=== PATIENT | female | born 1980 | race African-American/Black ===

== ENCOUNTER 2017-06-05 15:15 | Emergency (ER) | payer OTHER ==
[~2017-06-05] VITALS: Ht 167.6 cm; Wt 72.0 kg
[~2017-06-05 15:15] MED LIST: CLEOCIN300 MG PO; FLEXERIL10 MG PO; NAPROSYN500 MG PO; PREDNISONE50 MG PO; VENTOLIN HFA18 GM IH
[2017-06-05 17:24] VITALS: BP 135/106
== END 2017-06-05 17:27 | disposition home or self-care (01) ==
LOC: EME 15:15
DX: R51 Headache (principal); R03.0 Elevated blood-pressure reading, without diagnosis of hypertension; F17.200 Nicotine dependence, unspecified, uncomplicated
CPT/HCPCS: 70450; 99281; 99284; J1885

== ENCOUNTER 2017-08-09 05:50 | Day surgery (SDC) | payer OTHER ==
[~2017-08-09] VITALS: Ht 167.6 cm; Wt 72.5 kg
[2017-08-09 06:45] VITALS: BP 116/75
[2017-08-09] MEDS ORDERED: IBUPROFEN800 MG PO (08:34)
[2017-08-09 09:35] VITALS: BP 132/83
[2017-08-09 10:02] VITALS: BP 125/73
== END 2017-08-09 10:10 | disposition home or self-care (01) ==
LOC: SDC 05:50
PROC: 0UB Female Reproductive System, Excision (ICD-10-PCS; principal; 2017-08-09)
DX: K66.8 Other specified disorders of peritoneum (principal); L72.0 Epidermal cyst; J45.909 Unspecified asthma, uncomplicated; F17.200 Nicotine dependence, unspecified, uncomplicated
CPT/HCPCS: 88304; J0690; J1100; J1885; J2250; J2405; J3010

== ENCOUNTER 2017-12-15 07:42 | Emergency (ER) | payer OTHER ==
[~2017-12-15] VITALS: Ht 167.6 cm; Wt 72.8 kg
[~2017-12-15 07:42] MED LIST changes: +IBUPROFEN800 MG PO
[2017-12-15 08:40] LABS: SOURCE SWAB
[2017-12-15 09:16] VITALS: BP 132/80
== END 2017-12-15 09:16 | disposition home or self-care (01) ==
LOC: EME 07:42
PROVIDERS: Physician Assistant
DX: Z20.2 Contact with and (suspected) exposure to infections with a predominantly sexual mode of transmission (principal); Z11.3 Encounter for screening for infections with a predominantly sexual mode of transmission; R59.0 Localized enlarged lymph nodes; N88.8 Other specified noninflammatory disorders of cervix uteri; Z72.0 Tobacco use
CPT/HCPCS: 87210; 87491; 87591; 99281; 99284; J0696